=== PATIENT | female | born 1970 | race Caucasian/White ===

== ENCOUNTER 2016-05-09 17:59 | Inpatient (IN) | payer OTHER ==
--- NOTE | ~2016-05-09 | PN ---
Unit #: [id number] #: [id number] Patient: JEM OCONNELL [id number] [facility] [address] [place] [address] [id number] I MR#: [id number] NAME: JEM OCONNELL ROOM: P178 Age: 45 Sex: F Admission Date: 05/09/2016 : 1970 Attending Physician: Zoran Baig M.D. Admitting Physician: Zoran Baig M.D. Primary Care Physician: Primary Care Physician Mara JEAN PROGRESS NOTES DATE 05/13/2016 DISCUSSION The patient is active within the therapeutic milieu but continues to exhibit her tremulousness consistent with some lingering symptoms of alcohol withdrawal. We continue current treatment and expect a.m. discharge. Dictated by... Zoran Baig M.D. CB/lolly TD: 05/13/2016 14:17 JOB #: [id number] MIRANDA PROGRESS NOTES Page 1 of 1 X Zoran Baig MD PROGRESS NOTE
--- NOTE | ~2016-05-09 | PA ---
Unit #: [id number] #: [id number] Patient: JEM OCONNELL [id number] [place] [address] [id number] MR#: [id number] NAME: JEM OCONNELL ROOM: P178 Age: 45 Sex: F Admission Date: 05/09/2016 : 1970 Date of Assessment: 05/10/2016 Attending Physician: Zoran Baig M.D. Admitting Physician: Zoran Baig M.D. Primary Care Physician: Primary Care Physician No PSYCHIATRIC ASSESSMENT IDENTIFYING INFORMATION The patient is a 45-year-old single white female admitted with increasing depression and alcohol abuse. INFORMANT(S) The patient, reliability is good. CHIEF COMPLAINT None given HISTORY OF PRESENT ILLNESS The patient is a 45-year-old single white female who was last admitted to this facility approximately 5 years ago. The patient has a history of alcohol dependence and had a seizure during her last day at this facility. She is fearful that she may have another seizure during this stay. The patient reports that she has been drinking up to a fifth of hard liquor on a daily basis. She also reports worsening symptoms of depression and suicidal ideation. She reports that she is fearful that she and her boyfriend who also drinks and with whom she has a contentious relationship are facing eviction in the near future. The patient is currently denying suicidal or homicidal ideation. She reports no prior suicide attempts or gestures. The patient reports that she is followed at [facility] and has been prescribed Celexa and Lamictal though her medication reconciliation does not seem to reflect this at this point. She denies recent changes in sleep or appetite but does continue to complain of depressed mood. PAST PSYCHIATRIC HISTORY As above. PAST MEDICAL HISTORY Significant for history of hypertension and asthma. MEDICATIONS 1. Hydrochlorothiazide 2. Lisinopril 3. Symbicort 4. Vistaril 5. 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 She reports alcohol use as noted previously and is a smoker. MENTAL STATUS EXAMINATION At this time reveals the patient to be a well-developed, well-nourished white female, appearing her stated age. She is in no apparent physical distress at the time of examination. She is awake, alert, and oriented in all spheres. Her mood is mildly dysphoric. His affect is constricted. Speech is generally relevant and coherent. There are no gross deficits in memory or cognition noted. Intelligence is judged to be in the average range based on fund of knowledge. The patient is cooperative throughout the interview. He is currently reporting no suicidal or homicidal ideation or psychotic symptoms. Her judgment and insight appear to be intact. ASSETS AND LIABILITIES ASSETS: Motivation for change. LIABILITIES: Potential eviction. DIAGNOSTIC IMPRESSION 1. Major depressive disorder recurrent moderate. 2. Alcohol use disorder. 3. Hypertension. 4. Asthma. 5. History of alcohol withdrawal seizure. TREATMENT PLAN The patient remains hospitalized for safety and stabilization. We will continue previously prescribed medications and we will contact [facility] tomorrow to ascertain the patient's full list of psychotropic medications as she does report that she has been prescribed Celexa and Lamictal at that facility. I will add Neurontin on a scheduled basis in hopes of averting any withdrawal seizures. ESTIMATED LENGTH OF STAY Three to five days with followup to take place through the auspices of [facility] in the intensive outpatient program provided by this facility. Dictated by... Zoran Baig M.D. RODRIGUE/kalani TD: 05/11/2016 01:20 JOB #: [id number] Unit #: [id number] #: [id number] Patient: JEM OCONNELL PSYCHIATRIC ASSESSMENT Page 1 of 1 X Zoran Baig MD PSYCHIATRIC ASSESSMENT
--- NOTE | ~2016-05-09 | PN ---
Unit #: [id number] #: [id number] Patient: JEM OCONNELL [id number] [facility] [address] [place] [address] [id number] MR#: [id number] NAME: JEM OCONNELL ROOM: P178 Age: 45 Sex: F Admission Date: 05/09/2016 : 1970 Attending Physician: Zoran Baig M.D. Admitting Physician: Zoran Baig M.D. Primary Care Physician: Primary Care Physician Mara JEAN PROGRESS NOTES DATE 05/12/2016 DISCUSSION The patient is active within the therapeutic milieu but continues to exhibit tremulousness and significant symptoms of alcohol withdrawal. We continue current treatment. Dictated by... Zoran Baig M.D. CB/haris TD: 05/12/2016 16:39 JOB #: [id number] MIRANDA PROGRESS NOTES Page 1 of 1 X Zoran Baig MD X PROGRESS NOTE
--- NOTE | ~2016-05-09 | PN ---
Unit #: [id number] #: [id number] Patient: JEM OCONNELL [id number] [facility] [address] [place] [address] [id number] I MR#: [id number] NAME: JEM OCONNELL ROOM: P178 Age: 45 Sex: F Admission Date: 05/09/2016 : 1970 Attending Physician: oZran Baig M.D. Admitting Physician: Zoran Baig M.D. Primary Care Physician: Primary Care Physician Mara JEAN PROGRESS NOTES DATE 05/14/2016 DISCUSSION The patient is more dysphoric and anxious today having learned that she has been evicted from the domicile she had previously shared with her boyfriend. She is fearful about leaving the hospital regarding her homelessness and risk for relapse. I have gently but firmly confronted the patient regarding realistic expectations of inpatient care during today's interview. She is reporting some recurrence of suicidal thinking. Dictated by... Zoran Baig M.D. CB/haris TD: 05/14/2016 16:15 JOB #: [id number] MIRANDA PROGRESS NOTES Page 1 of 1 X Zoran Baig MD X PROGRESS NOTE
--- NOTE | ~2016-05-09 | HP ---
Unit #: [id number] #: [id number] Patient: JEM OCONNELL [id number] [place] [address] [id number] I MR#: [id number] NAME: JEM OCONNELL ROOM: P178 Age: 45 Sex: F Admission Date: 05/09/2016 : 1970 Attending Physician: Zoran Baig M.D. Admitting Physician: Zoran Baig M.D. Primary Care Physician: Primary Care Physician No HISTORY AND PHYSICAL HISTORY OF PRESENT ILLNESS The patient is a 45-year-old female admitted to [facility] on 05/09/2016 to detox from alcohol. PAST MEDICAL HISTORY 1. Withdrawal seizures. 2. Asthma. 3. Hypertension. 4. Smoker. PAST SURGICAL HISTORY The patient denies. SOCIAL HISTORY The patient is on medical leave from [employer]. She lives with her boyfriend. She smokes one pack of cigarettes daily and drinks a fifth of vodka per day. FAMILY MEDICAL HISTORY Noncontributory. ALLERGIES Prednisone CURRENT MEDICATIONS 1. Celexa 2. Keppra 3. Cipro 4. Ventolin 5. Lamictal REVIEW OF SYSTEMS CONSTITUTIONAL: No fever or chills. HEENT: Denies any sore throat, ear pain or runny nose. CARDIOVASCULAR: Denies chest pain, irregular heart rhythm or palpitations. CHEST: Denies shortness of breath or cough. No hemoptysis. GASTROINTESTINAL: Denies nausea, vomiting, diarrhea or chronic constipation. ENDOCRINE: Denies history of increased thirst or urination. No recent significant weight loss or gain. GENITOURINARY: Denies dysuria, frequency, or hematuria. SKIN: Denies any rashes. HEMATOLOGIC: Denies history of increased bleeding or bruising. Unit #: [id number] #: [id number] Patient: JEM OCONNELL MUSCULOSKELETAL: Denies any hot, swollen joints. No generalized muscle pain. NEUROLOGIC: Denies problems with vision or speech. No frequent, severe headaches. No numbness, tingling or weakness in any extremities. Denies loss of bladder or bowel control. PHYSICAL EXAM GENERAL: She is awake, alert and oriented in no acute distress. VITAL SIGNS: Temperature 99.0, heart rate 80, respiration 17, blood pressure 127/87. HEIGHT: 5'1". WEIGHT: 143 pounds. SKIN: Warm and dry without rash or lesion. HEENT: Normocephalic. TMs not viewed. Oral and nasal passages clear. Conjunctivae clear. PERRLA. EOMs intact. NECK: Supple without lymphadenopathy or thyromegaly. HEART: Regular rate and rhythm without murmur. LUNGS: Clear. ABDOMEN: Soft, nontender. : Not done. EXTREMITIES: No evidence of cyanosis, clubbing or edema. Moves all without focal deficit. NEUROLOGICAL: Grossly within normal limits. Cranial Nerves: II: Visual stock are intact. III, IV AND : Extraocular movements are intact. Pupils are equal, round and reactive to light. V: Facial sensation is grossly normal. VII: Facial movements and expression are normal. VIII: Auditory acuity grossly intact. IX, X: Uvula is midline. Phonation is normal. XI: Patient shrugs shoulders and turns head normally. XII: Tongue protrudes in the midline. Sensory and Motor Function: Sensory and motor sensation is grossly normal. Motor: moves all extremities well. IMPRESSION 1. Psychiatric admission. 2. Withdrawal seizures. 3. Asthma. 4. Hypertension. 5. Nicotine dependence. RECOMMENDATIONS Psychiatric per psychiatrist. MEDICAL: No contraindication to participate in facility activities. MEDICAL PROGNOSIS Good. MEDICAL CONDITION Stable. Dictated by... Sherrie Livingston A.P.R.N. Unit #: [id number] #: [id number] Patient: JEM OCONNELL DIONISIO/kalani TD: 05/10/2016 23:30 JOB #: [id number] HISTORY AND PHYSICAL Page 1 of 1 X SHERRIE LIVINGSTON APRN HISTORY AND PHYSICAL
--- NOTE | ~2016-05-09 | PN ---
Unit #: [id number] #: [id number] Patient: JEM OCONNELL [id number] [facility] [address] [place] [address] [id number] I MR#: [id number] NAME: JEM OCONNELL ROOM: P178 Age: 45 Sex: F Admission Date: 05/09/2016 : 1970 Attending Physician: Zoran Baig M.D. Admitting Physician: Zoran Baig M.D. Primary Care Physician: Primary Care Physician Mara GARCIA NOTES DATE 05/11/2016 DISCUSSION The patient remains significantly tremulous but is active within the therapeutic milieu. She is continuing to complain of severe symptoms of GI distress related to alcohol withdrawal. We continue current treatment. Dictated by... Zoran Baig M.D. CB/kalani TD: 05/12/2016 00:38 JOB #: [id number] MIRANDA GARCIA NOTES Page 1 of 1 X Zoran Baig MD X PROGRESS NOTE
--- NOTE | ~2016-05-09 | DS ---
Unit #: [id number] #: [id number] Patient: JEM OCONNELL [id number] [place] [address] [id number] MR#: [id number] NAME: JEM OCONNELL ROOM: P178 Age: 45 Sex: F Admission Date: 05/09/2016 : 1970 Discharge Date: 05/15/2016 Attending Physician: Zoran Baig M.D. Primary Care Physician: Primary Care Physician No DISCHARGE SUMMARY JOB NOTE: LAST NAME UNDECIPHERABLE REASON FOR ADMISSION The patient is a 45-year-old white female, admitted with depression and increased alcohol use. HOSPITAL COURSE The patient was admitted to the [facility] unit and placed on suicide precautions. She was continued on home medications including Motrin, Vistaril, Symbicort, Zestril, Oretic, Neurontin, Proventil, Levaquin, Keppra, Celexa, and Desyrel. Her stay in the hospital was a fairly uneventful one. Her detox went smoothly and by 05/15/2016, she had made arrangements for discharge to take place with followup to take place in the intensive outpatient program provided by this facility. As per her request, discharge was ordered on 05/15/2016. FINAL DIAGNOSES Alcohol use disorder, dysthymic disorder, seizure disorder, asthma, hypertension. DISPOSITION ON DISCHARGE The patient is discharged on the following medications; Motrin 600 mg q.6 hours p.r.n. pain, Vistaril 50 mg q.6 hours p.r.n. anxiety, Symbicort 2 puffs b.i.d. p.r.n. shortness of air, Zestril 10 mg once daily for hypertension, Oretic 25 mg once daily for hypertension, Neurontin 600 mg t.i.d. for seizure disorder, Proventil HFA 2 puffs q.i.d. for shortness of air, Keppra 500 mg b.i.d. for seizure disorder, Celexa 40 mg daily for depression, Desyrel 50 mg at h.s. p.r.n. insomnia. FOLLOWUP Followup will take place in the intensive outpatient program provided by this facility. PROGNOSIS The patient's prognosis is considered fair. Dictated by... Rebecca Monk Unit #: [id number] #: [id number] Patient: JEM OCONNELL TD: 05/15/2016 22:56 JOB #: [id number] DISCHARGE SUMMARY Page 1 of 1 X Zoran Baig MD X DISCHARGE SUMMARY
[2016-05-10 11:32] LABS: BASOPHIL% 1.3 % (0-2.5); EOSINOPHIL# 0.2 X10e3 (0-0.7); EOSINOPHIL% 4.9 % (0.0-7.0); HEMATOCRIT 38.5 % (35.0-45.0); HEMOGLOBIN 12.7 gm/dL (12.0-16.0); LYMPHOCYTE# 1.2 X10e3 (1.0-3.5); LYMPHOCYTE% 34.9 % (17.0-45.0); MEAN CELL VOLUME 102.1 FL (83-96); MEAN CORPUSCULAR HEMOGLOBIN 33.6 PG (28-34); MEAN PLATELET VOLUME 7.7 FL (6.5-11.5); MONOCYTE# 0.3 X10e3 (0-1.0); MONOCYTE% 7.8 % (3.0-12.0); NEUTROPHIL# 1.7 X10e3 (1.5-7.1); NEUTROPHIL% 51.1 % (40-75); PLATELET COUNT 96 X10e3 (140-420); RED BLOOD COUNT 3.78 X10e (3.90-5.30); RED CELL DISTRIBUTION WIDTH 13.5 % (11.0-15.5); WHITE BLOOD COUNT 3.3 X10e3 (4.0-10.5)
[2016-05-10 11:41] LABS: URINE APPEARANCE CLEAR; URINE BILIRUBIN NEG (NEG); URINE BLOOD NEG (NEG); URINE COLOR YELLOW; URINE GLUCOSE NEG (NEG); URINE KETONE NEG (NEG); URINE LEUKOCYTE ESTERASE NEG (NEG); URINE NITRATE POS (NEG); URINE PROTEIN NEG (NEG); URINE SPECIFIC GRAVITY 1.015 (1.003-1.035)
[2016-05-10 11:43] LABS: DIFF IND NO
[2016-05-10 11:45] LABS: U HYALINE CASTS AUWI 0-2 /[LPF]; URBCS1 AUWI 0-2 /[HPF] (0-2); URINE BACTERIA AUWI 4+ (NEGATIVE); URINE SQUAMOUS EPITHELIAL CELL NONE SEEN /[HPF]
[2016-05-10 12:03] LABS: THYROID STIMULATING HORMONE 2.03 uIU/ml (0.34-5.60)
[2016-05-10 12:12] LABS: FREE THYROXIN (T4) 0.78 ng/dL (0.58-1.64)
[2016-05-10 12:13] LABS: ALBUMIN SERUM 3.5 g/dL (3.5-5.0); BILIRUBIN,TOTAL 1.7 mg/dL (0.2-2.0); BUN/CREATININE RATIO 11.42; CALCIUM SERUM 8.3 mg/dL (8.4-10.2); CREATININE SERUM 0.7 mg/dL (0.6-1.4); GLOM FILT RATE Estimated 104.6 mL/min (>60); POTASSIUM 3.8 mmol/L (3.5-5.1)
[2016-05-10 12:32] LABS: AMPHETAMINE NEG (NEG); BARBITURATES NEG (NEG); BENZODIAZEPINES NEG (NEG); COCAINE NEG (NEG); MARIJUANA NEG (NEG); OPIATES NEG (NEG); TRICYCLIC ANTIDEPRESSANTS NEG (NEG); U METHADONE NEG (NEG)
== END 2016-05-15 16:25 | disposition home or self-care (01) | DRG 885 ==
LOC: P1E 17:59
PROVIDERS: Specialist
PROC: HZ2ZZZZ Detoxification Services for Substance Abuse Treatment (ICD-10-PCS; principal; 2016-05-09)
DX: F33.1 Major depressive disorder, recurrent, moderate (principal); G40.509 Epileptic seizures related to external causes, not intractable, without status epilepticus; I10 Essential (primary) hypertension; F10.239 Alcohol dependence with withdrawal, unspecified; F10.20 Alcohol dependence, uncomplicated; J45.909 Unspecified asthma, uncomplicated; F17.210 Nicotine dependence, cigarettes, uncomplicated
CPT/HCPCS: 80053; 80307; 81003; 84439; 84443; 85025; 86592